=== PATIENT | female | born 1950 | race Caucasian/White ===

== ENCOUNTER → 2019-12-27 | Outpatient (CLI) | payer MEDICARE, BC ==
[~2019-12-27] MED LIST: ALBU90OI INH; ASPI81CH PO; BENZ100A PO; BILBERRY; CALCAVITDA PO; CODLIVC PO; FISH1000 PO; MILK THISTLE; Mucinex600 MG PO; PYRI100 PO; TOCO400 PO; Zithromax250 MG PO
== END | disposition home or self-care (01) ==
LOC: PLD 15:18 → LAB SHORT 15:18
DX: D22.62 Melanocytic nevi of left upper limb, including shoulder (principal)
CPT/HCPCS: 88305